=== PATIENT | female | born 1970 | race Caucasian/White ===

== ENCOUNTER → 2021-01-21 | Outpatient (CLI) | payer BC ==
--- NOTE | 2021-01-22 08:58 | KCIC ---
MR LUMBAR SPINE WO [id number] Date: 01/21/2021 3:10 PM Indication: Worsening chronic LBP w/bilateral sciatica. Comparison: None. Technique: Multi-planar multi-weighted magnetic resonance imaging of the lumbar spine was performed w ithout intravenous contrast using the standard lumbar spine protocol. FINDINGS: The lumbar spine is normally aligned. No acute fracture. Mild multilevel degenerative disc desiccatio n and disc height loss. Bone marrow signal intensity is normal. The conus terminates at a normal level. No abnormal signal is seen within the visualized distal spina l cord. Redundancy of the nerve roots of the cauda equina proximal to the L3-4 stenosis. No soft tissue abnormality in the visualized abdomen or pelvis. T12-L1: No disc bulge. No facet arthropathy. No significant spinal stenosis or neural foraminal narro wing. L1-L2: No disc bulge. No facet arthropathy. No significant spinal stenosis or neural foraminal narrow ing. L2-L3: Disc bulge. Mild facet arthropathy. No significant spinal stenosis or neural foraminal narrowi ng. L3-L4: Disc bulge with annular tear and right paracentral protrusion which migrates 7 mm above the di sc space and 4 mm below the disc space. Mild right and moderate left facet arthropathy. Ligamentum fl avum thickening. Moderate to severe spinal stenosis and lateral recess narrowing. Mild right and mode rate left neural foraminal narrowing. L4-L5: Disc bulge. Moderate facet arthropathy. Ligamentum flavum thickening. Moderate spinal stenosis and right greater than left lateral recess narrowing. Moderate to severe right and mild to moderate left neural foraminal narrowing. L5-S1: Disc bulge. Severe right and moderate left facet arthropathy. Mild spinal stenosis. Moderate t o severe right and mild left neural foraminal narrowing. IMPRESSION: Lumbar spondylosis, worst at L3-4 with moderate to severe spinal canal stenosis. Electronically signed by: Cristhian Barry MD (01/22/2021 8:56 AM) [id number]
== END ==
LOC: KCIC MRI 14:58
PROVIDERS: ATTEND Family Medicine
DX: M47.816 Spondylosis without myelopathy or radiculopathy, lumbar region (principal); M51.27 Other intervertebral disc displacement, lumbosacral region; M48.8X7 Other specified spondylopathies, lumbosacral region; M48.07 Spinal stenosis, lumbosacral region; M51.36 Other intervertebral disc degeneration, lumbar region; M54.41 Lumbago with sciatica, right side; M54.42 Lumbago with sciatica, left side
CPT/HCPCS: 72148